=== PATIENT | female | born 1990 | race American Indian/Alaskan Native ===

== ENCOUNTER 2019-08-20 21:11 | Emergency (ER) | payer SELFPAY ==
[2019-08-20 21:22] VITALS: BP 134/46
--- NOTE | 2019-08-20 22:48 | Event Note ---
ED Screening Note Date of service: 08/20/19 Time: 22:45 ED Screening Note: 28 y/o female comes in for vaginal bleeding. LMP 07/12/19. Took preg test on Friday with a positive result. Mild pelvic cramping. Filled up 2 pads. This initial assessment/diagnostic orders/clinical plan/treatment(s) is/are subject to change based on patients health status, clinical progression and re- assessment by fellow clinical providers in the ED. Further treatment and workup at subsequent clinical providers discretion. Patient/guardian urged not to elope from the ED as their condition may be serious if not clinically assessed and managed. Initial orders include:
[2019-08-21 00:20] LABS: Bilirubin,Urine NEG (Negative); Blood,Urine LG (Negative); Color,Urine Straw (Yellow); Mucus,Urine FEW /HPF; Protein,Urine <15 mg/dL mg/dL (Negative); Urobilinogen,Urine < 2.0 mg/dL (<2.0)
[2019-08-21 00:21] LABS: RBC,Urine > 182.0 /HPF (0.0-6.0)
--- NOTE | 2019-08-21 00:23 | Ultrasound Report ---
ULTRASOUND OBSTETRIC Indication: vaginal spotting Findings: The right ovary measures 3.6 cm and the left ovary measures 2.6 cm. The uterus measures 8.8 cm in carlos gth. Endometrial stripe measures 8.7 mm. No intrauterine is seen. There are no adnexal masses. There is no free fluid. Impression: No intrauterine is seen. Correlation with serum beta hCG level is recommended. Follow-up ul trasound should be obtained as clinically warranted. Signer Name: Jignesh Magana MD Signed: 08/21/2019 12:18 AM Workstation Name: [id number]
--- NOTE | 2019-08-21 00:27 | Emergency Department Report ---
ED Female HPI - General Chief complaint: Vaginal Bleeding Stated complaint: POSSIBLE MISCARRIAGE Time Seen by Provider: 08/20/19 22:45 Source: patient Mode of arrival: Ambulatory Limitations: No Limitations - History of Present Illness Initial comments: 28 y/o female comes in for vaginal bleeding. LMP 07/12/19. Took preg test on Friday with a positive result. Mild pelvic cramping. Filled up 2 pads. MD Complaint: vaginal bleeding, pelvic pain - Related Data Allergies Allergy/AdvReac Type Severity Reaction Status Date / Time No Known Allergies Allergy Unverified 08/20/19 22:48 ED Review of Systems ROS: Stated complaint: POSSIBLE MISCARRIAGE Other details as noted in HPI ED Past Medical Hx - Past Medical History Previous Medical History?: No - Surgical History Past Surgical History?: No - Social History Smoking Status: Never Smoker Substance Use Type: Alcohol ED Physical Exam - General Limitations: No Limitations General appearance: alert, in no apparent distress - Head Head exam: Present: atraumatic, normocephalic - Eye Eye exam: Present: normal appearance - ENT ENT exam: Present: mucous membranes moist - GI/Abdominal GI/Abdominal exam: Present: soft, normal bowel sounds - Extremities Exam Extremities exam: Present: normal inspection, full ROM - Back Exam Back exam: Present: normal inspection, full ROM - Neurological Exam Neurological exam: Present: alert, oriented X3 - Psychiatric Psychiatric exam: Present: normal affect, normal mood ED Course Vital Signs 08/20/19 21:15 Temperature 98.7 F Pulse Rate 89 Respiratory 16 Rate Blood Pressure 134/46 O2 Sat by Pulse 98 Oximetry ED Medical Decision Making - Radiology Data Radiology results: report reviewed Patient: OLGA RUZI MR#: [id number] : 1990 Acct:[id number] Age/Sex: 28 / F ADM Date: 08/20/19 Loc: ED Attending Dr: Ordering Physician: EILEEN ROBLES Date of Service: 08/20/19 Procedure(s): US OB transvaginal Accession Number(s): [id number] cc: EILEEN ROBLES ULTRASOUND OBSTETRIC Indication: vaginal spotting Findings: The right ovary measures 3.6 cm and the left ovary measures 2.6 cm. The uterus measures 8.8 cm in length. Endometrial stripe measures 8.7 mm. No intrauterine is seen. There are no adnexal masses. There is no free fluid. Impression: No intrauterine is seen. Correlation with serum beta hCG level is recommended. Follow-up ultrasound should be obtained as clinically warranted. Signer Name: Jignesh Magana MD Signed: 08/21/2019 12:18 AM Workstation Name: [id number] Transcribed By: SS Dictated By: Jignesh Magana MD Electronically Authenticated By: Jignesh Magana MD Signed Date/Time: 08/21/1917 DD/ TD/TT: - Medical Decision Making 28 y/o female comes in for vaginal bleeding. LMP 07/12/19. Took preg test on Friday with a positive result. Mild pelvic cramping. Filled up 2 pads. hCGs level less than 40 ultrasound shows no intrauterine gestational sac. Patient most likely had a miscarriage. Patient can follow-up with the [facility] next week. Critical care attestation.: If time is entered above; I have spent that time in minutes in the direct care of this critically ill patient, excluding procedure time. ED Disposition Clinical Impression: Miscarriage Disposition: DC-01 TO HOME OR SELFCARE Is pt being admited?: No Does the pt Need Aspirin: No Condition: Stable Instructions: Spontaneous Miscarriage (ED) Additional Instructions: Please follow-up in the next 3 to 5 days with [facility]. Ultrasound shows no gestational sac in your hormonal level for is very low. You can take Tylenol as needed for cramping. Referrals: [facility] [Primary Care Provider] - 3-5 Days [facility] [Provider Group] - 3-5 Days [facility] [Provider Group] - 3-5 Days
== END 2019-08-21 00:44 | disposition home or self-care (01) ==
LOC: ED 21:11
DX: O03.9 Complete or unspecified spontaneous abortion without complication (principal); O46.8X1 Other antepartum hemorrhage, first trimester; O26.891 Other specified pregnancy related conditions, first trimester; Z3A.01 Less than 8 weeks gestation of pregnancy
CPT/HCPCS: 36415; 76801; 76817; 81001; 84702